=== PATIENT | female | born 1990 | race Native Hawaiian/Other Pacific Islander ===

== ENCOUNTER → 2018-06-20 | Outpatient (CLI) | payer OTHER ==
--- NOTE | 2018-07-04 17:10 | HM ---
Date of Procedure: 06/20/18 Preoperative Diagnosis: Palpitations Postoperative Diagnosis: No significant arrhythmias Procedure(s) Performed: 48 hour Holter Description of Procedure: Baseline EKG showed sinus rhythm. With an average heart rate of 92. Minimum is 55 and a max was 170. Occasional APCs and PVCs were noted. Patient complained of shortness of breath and pain in the chest, not correlating with any cardiac events. Final impression : #1. Sinus rhythm. #2 episodes of sinus tachycardia #3 occasional APCs. #4. Occasional PVCs. #5. Patient's symptoms did not correlate with any cardiac events. [facility]
== END | disposition home or self-care (01) ==
LOC: RADECHMAIN 11:48
PROVIDERS: ATTEND Pediatrics
DX: R00.0 Tachycardia, unspecified (principal); I49.3 Ventricular premature depolarization; I49.1 Atrial premature depolarization
CPT/HCPCS: 93225; 93226

== ENCOUNTER 2020-06-30 16:24 | Emergency (ER) | payer OTHER ==
--- NOTE | 2020-06-30 16:51 | ED ---
General Adult HPI - General Source: patient, RN notes reviewed Mode of arrival: ambulatory Limitations: no limitations <Niles Mcdermott - Last Filed: 06/30/20 19:37> <Eloisa Pratt - Last Filed: 07/01/20 07:54> - General Chief complaint: Upper Respiratory Infection Stated complaint: Covid+, 24wks preg, congestion, cough Time Seen by Provider: 06/30/20 16:46 - History of Present Illness Initial comments: Patient is a 29-year-old female currently 24 weeks who presents to the emergency room for low pulse oxygenation. Patient reports that she is positive for Coronavirus. States her symptoms started about 7 days ago. States she just tested positive yesterday for this. Patient states she has had a cough congestion and sore throat. She has not had any significant shortness of breath. However today she checked her oxygen after a nap and it was 91%. Patient states her fianc wanted her to be checked out. She does not have any significant shortness of breath.no vaginal bleeding or abdominal pain. Patient has no other complaints at this time including chest pain, abd pain, nausea or vomiting, headache, or visual changes. (Niles Mcdermott) - Related Data Allergies Allergy/AdvReac Type Severity Reaction Status Date / Time No Known Allergies Allergy Verified 06/30/20 16:41 Review of Systems ROS Other: All systems not noted in ROS Statement are negative. <Niles Mcdermott - Last Filed: 06/30/20 19:37> ROS Other: All systems not noted in ROS Statement are negative. <Eloisa Pratt - Last Filed: 07/01/20 07:54> ROS Statement: Those systems with pertinent positive or pertinent negative responses have been documented in the HPI. Past Medical History Additional Past Medical History / Comment(s): covid 07/10 History of Any Multi-Drug Resistant Organisms: None Reported Additional Past Surgical History / Comment(s): eye surgery Past Psychological History: Anxiety Smoking Status: Never smoker Past Alcohol Use History: None Reported Past Drug Use History: None Reported <Niles Mcdermott - Last Filed: 06/30/20 19:37> General Exam Limitations: no limitations General appearance: alert, in no apparent distress Head exam: Present: atraumatic, normocephalic, normal inspection Eye exam: Present: normal appearance, PERRL, EOMI. Absent: scleral icterus, conjunctival injection, periorbital swelling ENT exam: Present: normal exam, mucous membranes moist Neck exam: Present: normal inspection. Absent: tenderness, meningismus, lymphadenopathy Respiratory exam: Present: normal lung sounds bilaterally. Absent: respiratory distress, wheezes, rales, rhonchi, stridor Cardiovascular Exam: Present: regular rate, normal rhythm, normal heart sounds. Absent: systolic murmur, diastolic murmur, rubs, gallop, clicks GI/Abdominal exam: Present: soft, normal bowel sounds, other (Gravid). Absent: distended, tenderness, guarding, rebound, rigid <Niles Mcdermott - Last Filed: 06/30/20 19:37> Course Vital Signs 06/30/20 06/30/20 06/30/20 16:36 18:15 19:37 Temperature 98.1 F 98.4 F 98.7 F Pulse Rate 111 H 105 H 106 H Respiratory 22 18 18 Rate Blood Pressure 128/90 123/59 127/75 O2 Sat by Pulse 98 97 96 Oximetry Procedures <Niles Mcdermott - Last Filed: 06/30/20 19:37> - Procedures Initial comment: Bedside ultrasound was performed by myself. heart tones 130 bpm. Good movement. (Niles Mcdermott) Medical Decision Making <Niles Mcdermott - Last Filed: 06/30/20 19:37> <Eloisa Pratt - Last Filed: 07/01/20 07:54> - Medical Decision Making Vitals are stable. Patient is 97-98% on room air. Coronavirus is detected. Chest x-ray shows mild infiltrates. Patient does qualify for antibody infusion. I did discuss the risks of this including ALLERGIC reaction as well as unknown side effects. Patient still prefers to have this administered today. (Niles Mcdermott) I was available for consultation in the emergency department. The history and physical exam were done by the midlevel provider. I was consulted for this [facility] care. I reviewed the case with the midlevel provider and based on their presentation of the patient, I agree with the assessment, medical decision making and plan of care as documented. Chart was dictated using [employer] dictation software. Attempts were made to correct any dictation errors however some typographical errors may persist. (Eloisa Pratt) - Lab Data Lab Results 06/30/20 Range/Units 16:41 Coronavirus (PCR) Detected A (Not Detectd) Disposition Is patient prescribed a controlled substance at d/c from ED?: No Time of Disposition: 19:05 <Niles Mcdermott - Last Filed: 06/30/20 19:37> <Eloisa Pratt - Last Filed: 07/01/20 07:54> Clinical Impression: COVID-19 Disposition: HOME SELF-CARE Condition: Good Instructions (If sedation given, give patient instructions): Coronavirus Disease 2019 (COVID-19) Additional Instructions: Take Tylenol for fevers. Please follow up with primary care in 1-2 days. Please return to the emergency room for any worsening symptoms. Referrals: Jose Alfredo Farris MD [Primary Care Provider] - 1-2 days
[2020-06-30 18:16] VITALS: RESP 18
[2020-06-30] MEDS ORDERED: BAMLANIVIMAB (EUA) 700 MG, ETESEVIMAB (EUA) 1,400 MG in SODIUM CHLORIDE 0.9% 50 ML IVPB ONE (18:30)
--- NOTE | 2020-06-30 18:36 | XR ---
EXAMINATION TYPE: XR chest 1V portable DATE OF EXAM: 06/30/2020 COMPARISON: NONE HISTORY: Cough. TECHNIQUE: Single frontal view of the chest is obtained. FINDINGS: There is mild perihilar and bibasilar interstitial opacities. No pleural effusion, or pneu mothorax seen. The cardiac silhouette size is within normal limits. The osseous structures are int act. IMPRESSION: Mild interstitial opacities may relate to infiltrates versus atelectasis.
[2020-06-30 19:38] VITALS: BP 127/75; PULSE 106; TEMP 98.7
== END 2020-06-30 19:53 | disposition home or self-care (01) ==
LOC: EC 16:24
DX: O98.512 Other viral diseases complicating pregnancy, second trimester (principal); O99.342 Other mental disorders complicating pregnancy, second trimester; U07.1 COVID-19; F41.9 Anxiety disorder, unspecified; Z3A.24 24 weeks gestation of pregnancy
CPT/HCPCS: 87635; 71045; 99284; 96365; Q0245

== ENCOUNTER 2020-10-09 07:32 | Inpatient (IN) | payer OTHER ==
[2020-10-09 08:45] LABS: Uric Acid 5.7 mg/dL (3.7-7.4)
[2020-10-09] MEDS ORDERED: CARBOPROST TROMETHAMINE 250 MCG/ML 1 ML AMP IM PRN (10:40)
[2020-10-09] MEDS ORDERED: TERBUTALINE 1 MG/ML VIAL SQ PRN (10:40)
[2020-10-09] MEDS ORDERED: OXYTOCIN 10 UNIT/ML 1 ML VIAL IM PRN (10:40)
[2020-10-09] MEDS ORDERED: METHYLERGONOVINE 0.2 MG/ML 1 ML AMP IM PRN (10:40)
[2020-10-09] MEDS ORDERED: LIDOCAINE 0.5% (PF) 5 MG/ML (50 ML SDV) SQ PRN (10:40)
[2020-10-09 11:09] LABS: Basophils # (A) 0.1 k/uL (0-0.2); Basophils % (A) 0 %; Eosinophils # (A) 0.4 k/uL (0-0.7); Eosinophils % (A) 2 %; HCT 38.8 % (34.0-46.0); HGB 12.9 gm/dL (11.4-16.0); Lymphocytes # (A) 2.9 k/uL (1.0-4.8); Lymphocytes % (A) 16 %; MCH 30.8 pg (25.0-35.0); MCHC 33.2 g/dL (31.0-37.0); MCV 92.8 fL (80.0-100.0); Mean Platelet Volume 9.5; Monocytes # (A) 0.5 k/uL (0-1.0); Monocytes % (A) 3 %; Neutrophils # (A) 14.5 k/uL (1.3-7.7); Neutrophils % (A) 79 %; Platelet Count 307 k/uL (150-450); RBC 4.18 m/uL (3.80-5.40); RDW 14.2 % (11.5-15.5); WBC 18.4 k/uL (3.8-10.6)
--- NOTE | 2020-10-09 12:07 | P.HPOB ---
History of Present Illness H&P Date: 10/09/20 Chief Complaint: Regular uterine contractions This is a 29-year-old female 1 para 0 EDC 10/18/2020 at 38-5/7 weeks' gestation. Patient presents with uterine contractions that she states have become increasingly intense over the morning. She denies fluid leakage or vaginal bleeding. history is significant for negative group B strep cultures, blood type O-, rubella status immune. VDRL testing, hepatitis B surface antigen, gonorrhea and chlamydia cultures, HIV testing all negative. One-hour Glucola 85. Past medical history significant for anxiety. Past surgical history eye surgery, wisdom teeth extracted. Current medications Zoloft 50 mg daily, Zyrtec 10 mg when necessary, Flonase nasally as needed. vitamin daily. Family history significant for breast cancer and thyroid disease. Social history patient has never been a smoker, she is , she denies alcohol or drug use. On examination patient is 5 foot 3 inches, 255 pounds, vital signs are stable and she is afebrile. The general physical exam is within normal limits. The chest is clear in all bennett. Cervix is 3 cm dilated, 70% effaced, -2 station, anterior, soft. Artificial amniorrhexis reveals light meconium-stained fluid. heart rate is consistent with reactive NST. Internal scalp lead is applied per nursing staff request. Impression: 38 and 5/7 weeks' gestational age, early spontaneous labor. Light meconium-stained fluid. All other signs reassuring. Plan: We'll begin oxytocin augmentation at this time. Analgesic options have been reviewed, patient is requesting epidural. Anesthesia team is present and aware. Continue close maternal and surveillance. Anticipate normal spontaneous vaginal delivery. Review of Systems Constitutional: Reports as per HPI Past Medical History Additional Past Medical History / Comment(s): covid 07/10 History of Any Multi-Drug Resistant Organisms: None Reported Additional Past Surgical History / Comment(s): eye surgery Smoking Status: Never smoker Medications and Allergies Home Medications Medication Instructions Recorded Confirmed Type Aspirin [Children's Aspirin] 162 mg PO DAILY 10/09/20 10/09/20 History Loratadine [Claritin] 10 mg PO DAILY 10/09/20 10/09/20 History Pnv No.95/Ferrous Fum/Folic AC 1 tab PO DAILY 10/09/20 10/09/20 History [ Multivitamin Tablet] Sertraline HCl [Zoloft] 50 mg PO DAILY 10/09/20 10/09/20 History Allergies Allergy/AdvReac Type Severity Reaction Status Date / Time No Known Allergies Allergy Verified 10/09/20 07:50 Exam Intake and Output 10/08/20 10/09/20 10/09/20 22:59 06:59 14:59 Other: Weight 114.305 kg See dictation under HPI please Results Result Diagrams: 10/09/20 10:50 Abnormal Lab Results - Last 24 Hours (Table) 10/09/20 Range/Units 10:50 WBC 18.4 H (3.8-10.6) k/uL Neutrophils # 14.5 H (1.3-7.7) k/uL Assessment and Plan Assessment: 38 and 5/7 weeks' gestation, light meconium-stained fluid, very early labor. Plan: Oxytocin augmentation now please. Analgesic options reviewed, epidural requested, anesthesia team aware. Continue close maternal and surve illance. Anticipate normal spontaneous vaginal delivery. Time with Patient: Less than 30
[2020-10-09] MEDS: LACTATED RINGERS 1,000 ML IV SCH ×3 (12:13→13:29)
[2020-10-09] MEDS: OXYTOCIN 30 UNITS/500 ML NS 30 UNIT in SALINE 1 500ML.BAG IV SCH ×2 (12:14→21:18)
[2020-10-09] MEDS ORDERED: fentaNYL (PF) 50 MCG/ML 5 ML AMP ONE (12:21)
[2020-10-09] MEDS ORDERED: SODIUM CHLORIDE 0.9% 100 ML BAG ONE (12:21)
[2020-10-09] MEDS ORDERED: ROPIVACAINE 5MG/ML 20ML VIAL ONE (12:21)
[2020-10-09] MEDS ORDERED: ceFAZolin 3 GM in SODIUM CHLORIDE 0.9% 100 ML IVPB ONE (20:05)
[2020-10-09] MEDS ORDERED: LANOLIN CREAM 5 GM TUBE TOPICAL PRN (20:40)
[2020-10-09] MEDS ORDERED: diphenhydrAMINE 50 MG CAP PO PRN (20:40)
[2020-10-09] MEDS ORDERED: SIMETHICONE 80 MG CHEWABLE PO PRN (20:40)
[2020-10-09] MEDS ORDERED: BENZOCAINE/MENTHOL SPRAY 1 GM/SPRAY AEROSOL TOPICAL PRN (20:40)
[2020-10-09] MEDS ORDERED: diphenhydrAMINE 25 MG CAP PO PRN (20:40)
[2020-10-09] MEDS ORDERED: HYDROCORTISONE 2.5% RECTAL CREAM 30 GM TUBE RECTAL PRN (20:40)
[2020-10-09] MEDS ORDERED: ZOLPIDEM 5 MG TAB PO PRN (20:40)
[2020-10-09] MEDS ORDERED: diphenhydrAMINE 50 MG/ML 1 ML VIAL IVP PRN ×2 (20:40)
--- NOTE | 2020-10-09 20:40 | P.PROBDLV ---
Vaginal Delivery Note - . Vaginal Delivery Note: This is a 29-year-old female 1 para 0 EDC 10/18/2020 at 38-5/7 weeks' gestation. Patient presented in early spontaneous labor at home. Artificial amniorrhexis revealed meconium-stained fluid. Oxytocin was started and titrated per hospital protocol. Blood type is O+, rubella status immune, group B strep cultures negative. Please see dictated history and physical for details. Oxytocin was started and titrated per hospital protocol. Epidural was placed p er her request. She progressed through the first stage of labor and became completely dilated at 1956 hrs. Second stage of labor was then started. Perineal body was prepped and draped in usual sterile fashion. With excellent maternal expulsive efforts 's head delivered occiput anterior and restituted accordingly. There is no nuchal cord. The left or anterior shoulder was gently delivered from underneath the pubic symphysis at which time the oropharynx, nasopharynx, and external nares are bulb suctioned. Patient was officially delivered of a liveborn female infant at 2011 hours. Umbilical cord is doubly clamped and ligated, she is handed to waiting nurses for evaluation where scores of 9 and 9 at one and 5 minutes respectively are given. Placentas delivered spontaneously, it is inspected and noted to be intact, meconium-stained, a peripherally inserted 3 vessel cord, and what appears to be additional lobe of placenta. For these reasons it is sent to pathology for f urther evaluation. Uterus is then massaged. Bleeding is slightly brisk, Methergine 1 was given IM with excellent results. In the second stage of labor close to delivery patient was noted to have a low-grade temperature, and therefore 3 g of Ancef were given. Careful inspection of the cervix, vagina, perineum periurethral and perirectal areas revealed a small first-degree perineal laceration. This was repaired in the usual fashion using repeat suture. All sponge needle and enhancement counts are correct. Total estimated blood loss 250 mL's. Infant weighs 6 pounds 7-1/2 ounces or 2935 g. Patient and her family are allowed to begin the bonding experience in the LDR.
[2020-10-09] MEDS ORDERED: SERTRALINE 50 MG TAB PO ONE (21:00)
[2020-10-09] MEDS ORDERED: ACETAMINOPHEN IV (For NPO) 1,000 MG in EMPTY BAG 1 BAG IVPB STA (21:04)
[2020-10-10] MEDS: IBUPROFEN 600 MG TAB PO PRN ×4 (04:15→23:37)
--- NOTE | 2020-10-10 07:41 | P.DS ---
Providers Date of admission: 10/09/20 10:33 Expected date of discharge: 10/10/20 Attending physician: Kaylie Alvarez Primary care physician: Stated None Hospital Course: This is a 29-year-old white female 1 para 0 EDC 10/18/2020 at 38-5/7 weeks' gestation. Patient presented in early spontaneous labor. is essentially unremarkable, group B strep cultures negative. Please see dictated history and physical for details. Artificial amniorrhexis revealed meconium-stained fluid. Epidural was placed per her request and oxytocin was started and titrated per protocol. Patient went on to deliver vaginally a liveborn female with scores of 9 and 9 at one and 5 minutes respectively. Infant weighed 6 lbs. 7 oz. or 2935 g. There was an estimated blood loss recorded of 250 mL, a small first-degree perineal laceration easily repaired. Please see dictated delivery note for details. Patient is doing well. She is voiding, ambulating, passing flatus without difficulty. Vital signs are stable and she is afebrile. Fundus is firm and in the midline, symmetric and 18 week size. Extremities are negative for edema. Breast-feeding is going well. Patient is judged to be in good condition for discharge home. She will follow-up with me in the office in 6 weeks. I have reminded her no intercourse, tampons or douching. She will use [id number] Advil or Aleve, or Motrin as needed for pain. She will call with any fevers shakes or chills, foul smelling or copious lochia, with the passage of blood clots, with any pain not alleviated by [id number] products, or indeed with any concerns. Will follow-up with salesperson household appliances as per recommendations. Assessment: Doing well day #1 Patient Condition at Discharge: Good Plan - Discharge Summary Discharge Rx Participant: No New Discharge Prescriptions: No Action Sertraline HCl [Zoloft] 50 mg PO DAILY Pnv No.95/Ferrous Fum/Folic AC [ Multivitamin Tablet] 1 tab PO DAILY Loratadine [Claritin] 10 mg PO DAILY Aspirin [Children's Aspirin] 162 mg PO DAILY Discharge Medication List Aspirin [Children's Aspirin] 162 mg PO DAILY 10/09/20 [History] Loratadine [Claritin] 10 mg PO DAILY 10/09/20 [History] Pnv No.95/Ferrous Fum/Folic AC [ Multivitamin Tablet] 1 tab PO DAILY [History] Sertraline HCl [Zoloft] 50 mg PO DAILY 10/09/20 [History] Follow up Appointment(s)/Referral(s): Kyalie Alvarez MD [STAFF PHYSICIAN] - 6 Weeks
[2020-10-10] MEDS: SENNOSIDES-DOCUSATE SODIUM 1 EACH TAB PO SCH ×2 (07:52→20:12)
[2020-10-10 16:48] VITALS: RESP 16
[2020-10-11 04:48] VITALS: BP 113/68; PULSE 90; TEMP 97.7
--- NOTE | 2020-10-11 09:30 | P.MSEPDOC ---
Presenting Problems - Arrival Data Date of Arrival on Unit: 10/09/20 Time of Arrival on Unit: 10:33 Mode of Transport: Wheelchair - Complaint OB-Reason for Admission/Chief Complaint: Possible Onset of Labor Comment: pt presents with contractions that are getting stronger and more uncomfortable. Medical History - Information : 1 Para: 0 Term: 0 : 0 Abortions: Spontaneous or Elective: 0 Number of Living Children: 0 - Gestational Age Gestational Age by ROCKY (wks/days): 38 Weeks and 6 Days Review of Systems - Review of Systems Constitutional: No problems Breast: No problems ENT: No problems Cardiovascular: No problems Respiratory: No problems Gastrointestinal: No problems Genitourinary: No problems Musculoskeletal: No problems Neurological: No problems Skin: No problems Vital Signs - Temperature Temperature: 97.7 F Temperature Source: Oral - Pulse Right Brachial Pulse Rate: 90 Pulse Assessment Method: Automatic Cuff Pulse Oximetery Pulse Rate: 90 Pulse Assessment Method: Automatic Cuff - Respirations Respiratory Rate: 16 Oxygen Delivery Method: Room Air - Blood Pressure Right Arm Blood Pressure: 113/68 Blood Pressure Mean: 83 Blood Pressure Source: Automatic Cuff Medical Screen Scoring - Cervical Exam Dilation (cm): 1.5 Effacement (%): 60 Station: -2 Membranes: Intact - Uterine Contractions Frequency From (mins): 3 Frequency To (mins): 6 Duration From (seconds): 40 Duration To (seconds): 70 Intensity: Mild Resting: Soft to palpation - Assessment - Baby A Baseline FHR: 120 Heart Rate - NICHD Category: Category I (Normal) NST: Reactive Physician Notification - Physician Notified Physician Notified Date: 10/09/20 Physician Notified Time: 07:57 Physician: Kaylie Alvarez Order Received: Yes - Notification Comment Comment: obtain ast, alt, and uric acid, kept pt 2 hours, pt made cervical change, admitted for labor Maternal Triage Index - Urgent/Priority 2 Urgent Priority 2: No Criteria Met for Priority 2: pt 38 5/7 with strong contractions, and breathing through contractions - Prompt/Priority 3 Prompt Priority 3: Yes Criteria Met for Priority 3: pt 38 5/7 with strong contractions, and breathing through contractions Disposition - Disposition OB Disposition: Admit, LDRP Suite Discharge Date: 10/11/20 Discharge Time: 07:46 I agree with the RN Medical Screening Exam: Yes Case reviewed; plan agreed upon as documented in EMR&OBIX.: Yes Diagnosis: LOUSE-BORNE TYPHUS
== END 2020-10-11 07:46 | disposition home or self-care (01) | DRG 807 ==
LOC: FBPOP 07:32 → 4FBP 10:33
PROVIDERS: ADMIT Obstetrics & Gynecology; ATTEND Obstetrics & Gynecology
PROC: 10907ZC Drainage of Amniotic Fluid, Therapeutic from Products of Conception, Via Natural or Artificial Opening (ICD-10-PCS; principal; 2020-10-09)
PROC: 0HQ9XZZ Repair Perineum Skin, External Approach (ICD-10-PCS; principal; 2020-10-09)
PROC: 4A0HX4Z Measurement of Products of Conception, Cardiac Electrical Activity, External Approach (ICD-10-PCS; principal; 2020-10-09)
PROC: 10E0XZZ Delivery of Products of Conception, External Approach (ICD-10-PCS; principal; 2020-10-09)
PROC: 3E033VJ Introduction of Other Hormone into Peripheral Vein, Percutaneous Approach (ICD-10-PCS; principal; 2020-10-09)
DX: O70.0 First degree perineal laceration during delivery (principal); Z37.0 Single live birth; O77.0 Labor and delivery complicated by meconium in amniotic fluid; F41.9 Anxiety disorder, unspecified; O99.343 Other mental disorders complicating pregnancy, third trimester; O26.893 Other specified pregnancy related conditions, third trimester; Z3A.38 38 weeks gestation of pregnancy; Z67.40 Type O blood, Rh positive; Z79.82 Long term (current) use of aspirin; Z79.899 Other long term (current) drug therapy
CPT/HCPCS: 59025; 84450; 84460; 84550; 85025; 86850; 86900; 86901; 99214